=== PATIENT | female | born 1950 | race Caucasian/White ===

== ENCOUNTER 2022-11-06 05:47 | Inpatient (IN) ==
[2022-11-06] MEDS ORDERED: VANCOMYCIN INJ 1,000 MG in SODIUM CHLORIDE 0.9% 250 ML IV ONE (06:30)
[2022-11-06 06:51] LABS: INR 0.9; PT Patient Result 10.3 SECS (10.1-12.1); Partial Thromboplastin Time 27.1 SECS (23.7-32.9)
[2022-11-06] MEDS ORDERED: GABAPENTIN 400 MG CAPSULE PO ONE (06:52)
[2022-11-06] MEDS ORDERED: FAMOTIDINE 20 MG TABLET PO ONE (06:52)
[2022-11-06] MEDS ORDERED: ACETAMINOPHEN 500 MG TABLET PO ONE (06:52)
[2022-11-06] MEDS ORDERED: DIAZEPAM 5 MG TABLET PO ONE (06:52)
[2022-11-06] MEDS: LACTATED RINGERS 1,000 ML IV SCH ×4 (07:35→18:46)
[2022-11-06] MEDS ORDERED: CLINDAMYCIN INJ 900 MG/50 ML PREMIX IV ONE (08:00)
[2022-11-06] MEDS ORDERED: fentaNYL 100 MCG/2 ML VIAL ONE (08:04)
[2022-11-06] MEDS ORDERED: LIDOCAINE 2% 5 ML VIAL ONE (09:16)
[2022-11-06] MEDS ORDERED: buprenorphine HCL 0.3 MG/ML VIAL ONE (09:16)
[2022-11-06] MEDS ORDERED: propofoL 200 MG/20 ML VIAL IV ONE (09:16)
[2022-11-06] MEDS ORDERED: ONDANSETRON 4 MG/2 ML VIAL ONE (09:16)
[2022-11-06] MEDS ORDERED: ROPIVACAINE 0.5% 30 ML VIAL ONE (09:23)
[2022-11-06] MEDS ORDERED: LIDOCAINE 1% 5 ML VIAL ONE (09:23)
[2022-11-06] MEDS ORDERED: MIDAZOLAM 2 MG/2 ML VIAL ONE (09:23)
[2022-11-06] MEDS ORDERED: DEXAMETHASONE 4 MG/1 ML VIAL ONE (09:23)
[2022-11-06] MEDS ORDERED: FLUTICASONE 50 MCG NASAL SPRAY 16 GM BOTTLE BOTH NARES PRN (10:15)
[2022-11-06] MEDS ORDERED: TEMAZEPAM 15 MG CAPSULE PO PRN (10:15)
[2022-11-06] MEDS ORDERED: MORPHINE 2 MG/1 ML SYRINGE IV PRN (10:16)
[2022-11-06] MEDS ORDERED: oxyCODONE/ACETAMINOPHEN 5-325 MG TABLET PO PRN (10:16)
[2022-11-06] MEDS ORDERED: ONDANSETRON 4 MG/2 ML VIAL IV PRN ×2 (10:16→12:03)
[2022-11-06] MEDS ORDERED: diphenhydrAMINE CAP 25 MG CAPSULE PO PRN (10:16)
[2022-11-06] MEDS ORDERED: ePHEDrine 50 MG/ML VIAL ONE (10:28)
[2022-11-06] MEDS ORDERED: BACITRACIN OINT 0.9 GM PACK TOP ONE (10:45)
[2022-11-06] MEDS ORDERED: SEVOFLURANE 1 UNIT/15 MINUTE INH ONE ×3 (10:47→11:25)
[2022-11-06] MEDS ORDERED: LACTATED RINGERS 1,000 ML IV ONE (10:47)
[2022-11-06] MEDS ORDERED: GLYCOPYRROLATE 0.4 MG/2 ML VIAL ONE (10:51)
[2022-11-06] MEDS ORDERED: ESMOLOL 100 MG/10 ML VIAL IV ONE (10:56)
[2022-11-06] MEDS ORDERED: MEPERIDINE 25 MG/1 ML VIAL IV PRN (12:03)
[2022-11-06] MEDS: MORPHINE 2 MG/1 ML SYRINGE IV PRN (12:59)
[2022-11-06] MEDS: KETOROLAC 15 MG/1 ML VIAL IV SCH ×3 (13:00→21:34)
[2022-11-06] MEDS: INSULIN LISPRO 100 UNIT/ML SUBCUT SCH ×2 (16:57→21:34)
[2022-11-06] MEDS: APIXABAN 2.5 MG TABLET PO SCH (21:33)
[2022-11-06] MEDS: SIMVASTATIN 20 MG TABLET PO SCH (21:33)
[2022-11-06] MEDS: DOCUSATE SODIUM 100 MG CAPSULE PO SCH (21:33)
[2022-11-06] MEDS: PHENOL 1.4% THROAT SPRAY 177 ML BOTTLE PO PRN (22:22)
[2022-11-07] MEDS: PHENOL 1.4% THROAT SPRAY 177 ML BOTTLE PO PRN (02:28)
[2022-11-07] MEDS: LACTATED RINGERS 1,000 ML IV SCH (02:28)
[2022-11-07 05:35] LABS: Basophils % 0.1 % (0.0-0.8); Hematocrit 33.1 VOL% (35.7-47.0); Hemoglobin 10.4 GM/DL (12.0-16.0); Immature Granulocytes % 0.6 %; Immature Granulocytes Absolute 0.06 #; Lymphocytes # 1.1 10*3/uL (1.4-4.0); Lymphocytes % 10.3 % (21.3-54.2); Mean Corpuscular HGB Conc 31.4 GM/DL (32-36); Mean Corpuscular Volume 98.8 FL (87-102); Mean Platelet Volume 10.1 FL (9.6-12.0); Monocytes # 1.1 10*3/uL (0.11-0.8); Monocytes % 10.4 % (1.7-12.7); Neutrophils % 78.6 % (38.7-73.9); Platelet Count 242 T/CUMM (130-400); Red Blood Count 3.35 MC/CUMM (3.8-5.5); White Blood Count 10.7 T/CUMM (4-12)
[2022-11-07 06:01] LABS: Calcium 8.1 MG/DL (8.5-10.1); Osmolality,Calculated 280.5 MOS/KG (273-304); Potassium 4.3 MMOL/L (3.5-5.1)
[2022-11-07] MEDS: INSULIN LISPRO 100 UNIT/ML SUBCUT SCH ×4 (08:01→21:31)
[2022-11-07] MEDS: ESTRADIOL 1 MG TABLET PO SCH (08:34)
[2022-11-07] MEDS: metFORMIN 500 MG TABLET PO SCH (08:34)
[2022-11-07] MEDS: ZINC GLUCONATE 50 MG TABLET PO SCH (08:35)
[2022-11-07] MEDS: ASCORBIC ACID 500 MG TABLET PO SCH (08:35)
[2022-11-07] MEDS: APIXABAN 2.5 MG TABLET PO SCH ×2 (08:35→21:31)
[2022-11-07] MEDS: CHOLECALCIFEROL 1,000 UNIT TABLET PO SCH (08:35)
[2022-11-07] MEDS: MULTIVITAMIN (CENTRUM) TABLET PO SCH (08:35)
[2022-11-07] MEDS: DOCUSATE SODIUM 100 MG CAPSULE PO SCH ×2 (08:35→21:31)
[2022-11-07] MEDS: oxyCODONE/ACETAMINOPHEN 5-325 MG TABLET PO PRN ×3 (08:35→17:08)
[2022-11-07] MEDS: lisinopriL 10 MG TABLET PO SCH (08:36)
[2022-11-07] MEDS: METOPROLOL TARTRATE 50 MG TABLET PO SCH (08:36)
[2022-11-07] MEDS: CETIRIZINE 10 MG TABLET PO SCH (08:36)
[2022-11-07] MEDS: ESCITALOPRAM 10 MG TABLET PO SCH (08:36)
[2022-11-07] MEDS: MORPHINE 2 MG/1 ML SYRINGE IV PRN ×3 (11:39→21:32)
[2022-11-07] MEDS: SIMVASTATIN 20 MG TABLET PO SCH (21:31)
[2022-11-08] MEDS: MORPHINE 2 MG/1 ML SYRINGE IV PRN (00:13)
[2022-11-08] MEDS: oxyCODONE/ACETAMINOPHEN 5-325 MG TABLET PO PRN ×3 (05:14→18:18)
[2022-11-08 05:28] LABS: Basophils % 0.3 % (0.0-0.8); Eosinophils % 0.1 % (0.00-10.9); Hematocrit 32.1 VOL% (35.7-47.0); Hemoglobin 10.1 GM/DL (12.0-16.0); Immature Granulocytes % 0.7 %; Immature Granulocytes Absolute 0.09 #; Lymphocytes # 1.3 10*3/uL (1.4-4.0); Lymphocytes % 10.3 % (21.3-54.2); Mean Corpuscular HGB Conc 31.5 GM/DL (32-36); Mean Corpuscular Volume 98.8 FL (87-102); Mean Platelet Volume 10.6 FL (9.6-12.0); Monocytes # 1.7 10*3/uL (0.11-0.8); Monocytes % 13.5 % (1.7-12.7); Neutrophils % 75.1 % (38.7-73.9); Platelet Count 248 T/CUMM (130-400); Red Blood Count 3.25 MC/CUMM (3.8-5.5); Red Cell Distribution Width 12.3 % (9.3-17.3); White Blood Count 12.9 T/CUMM (4-12)
[2022-11-08] MEDS: INSULIN LISPRO 100 UNIT/ML SUBCUT SCH ×4 (08:17→20:59)
[2022-11-08] MEDS: ESTRADIOL 1 MG TABLET PO SCH (09:25)
[2022-11-08] MEDS: lisinopriL 10 MG TABLET PO SCH (09:26)
[2022-11-08] MEDS: ASCORBIC ACID 500 MG TABLET PO SCH (09:26)
[2022-11-08] MEDS: METOPROLOL TARTRATE 50 MG TABLET PO SCH (09:26)
[2022-11-08] MEDS: APIXABAN 2.5 MG TABLET PO SCH ×2 (09:26→20:56)
[2022-11-08] MEDS: ZINC GLUCONATE 50 MG TABLET PO SCH (09:26)
[2022-11-08] MEDS: CETIRIZINE 10 MG TABLET PO SCH (09:27)
[2022-11-08] MEDS: ESCITALOPRAM 10 MG TABLET PO SCH (09:27)
[2022-11-08] MEDS: metFORMIN 500 MG TABLET PO SCH (09:27)
[2022-11-08] MEDS: DOCUSATE SODIUM 100 MG CAPSULE PO SCH ×2 (09:27→20:57)
[2022-11-08] MEDS: CHOLECALCIFEROL 1,000 UNIT TABLET PO SCH (09:27)
[2022-11-08] MEDS: MULTIVITAMIN (CENTRUM) TABLET PO SCH (09:27)
[2022-11-08] MEDS: MAGNESIUM HYDROXIDE SUSP 30 ML UDCUP PO PRN (09:28)
[2022-11-08] MEDS: SIMVASTATIN 20 MG TABLET PO SCH (20:57)
[2022-11-09] MEDS: oxyCODONE/ACETAMINOPHEN 5-325 MG TABLET PO PRN ×2 (03:17→10:22)
[2022-11-09] MEDS: INSULIN LISPRO 100 UNIT/ML SUBCUT SCH ×2 (08:06→12:51)
[2022-11-09] MEDS: ESTRADIOL 1 MG TABLET PO SCH (10:22)
[2022-11-09] MEDS: lisinopriL 10 MG TABLET PO SCH (10:22)
[2022-11-09] MEDS: ASCORBIC ACID 500 MG TABLET PO SCH (10:22)
[2022-11-09] MEDS: CETIRIZINE 10 MG TABLET PO SCH (10:22)
[2022-11-09] MEDS: ESCITALOPRAM 10 MG TABLET PO SCH (10:22)
[2022-11-09] MEDS: CHOLECALCIFEROL 1,000 UNIT TABLET PO SCH (10:23)
[2022-11-09] MEDS: METOPROLOL TARTRATE 50 MG TABLET PO SCH (10:23)
[2022-11-09] MEDS: MULTIVITAMIN (CENTRUM) TABLET PO SCH (10:23)
[2022-11-09] MEDS: metFORMIN 500 MG TABLET PO SCH (10:23)
[2022-11-09] MEDS: MAGNESIUM HYDROXIDE SUSP 30 ML UDCUP PO PRN (10:23)
[2022-11-09] MEDS: DOCUSATE SODIUM 100 MG CAPSULE PO SCH (10:23)
[2022-11-09] MEDS: ZINC GLUCONATE 50 MG TABLET PO SCH (10:23)
[2022-11-09] MEDS: APIXABAN 2.5 MG TABLET PO SCH (10:23)
[2022-11-09 11:53] VITALS: BP 146/66
== END 2022-11-09 12:11 | disposition swing bed (61) | DRG 470 ==
LOC: N.OR 05:47 → N.SDSINP 05:48 → N.3E 12:45
PROVIDERS: ADMIT Orthopaedic Surgery; ATTEND Orthopaedic Surgery